=== PATIENT | female | born 1985 | race Caucasian/White ===

== ENCOUNTER → 2019-12-01 | Outpatient (CLI) | payer OTHER ==
[2019-12-02 02:07] LABS: IgA 280 mg/dL (87-352); IgG 1035 mg/dL (586-1602); IgM 131 mg/dL (26-217)
== END ==
LOC: M.LAB 15:16
PROVIDERS: Psychiatry & Neurology Neuromuscular Medicine
DX: G60.9 Hereditary and idiopathic neuropathy, unspecified (principal); F41.9 Anxiety disorder, unspecified; F32.89 Other specified depressive episodes